=== PATIENT | male | born 1960 | race Caucasian/White ===

== ENCOUNTER 2016-12-13 10:52 | Emergency (ER) | payer MEDICARE ==
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
== END 2016-12-13 11:10 | disposition disaster alternative care site (69) ==
LOC: GMED 10:52
DX: F41.9 Anxiety disorder, unspecified (principal)

== ENCOUNTER 2016-12-13 15:57 | Emergency (ER) | payer MEDICARE | END 2016-12-13 16:10 | disposition disaster alternative care site (69) | LOC: GMED 15:57 | DX: Z53.21 Procedure and treatment not carried out due to patient leaving prior to being seen by health care provider (principal) ==

== ENCOUNTER 2017-01-10 06:31 | Emergency (ER) | payer MEDICARE ==
--- NOTE | ~2017-01-10 | ER ---
PATIENT'S NAME: MOUSTAPHA [facility] AGE: 56 Y [address] ROOM: [place] [address] LOCATION: [facility] ADMIT DATE: 01/10/2017 ER/Outpatient Report DISCHARGE DATE: 01/10/2017 FAMILY PHYSICIAN: James Quintanilla MD ATTENDING PHYSICIAN: Tammy Schilling Time of Arrival: 0635 hours. Time of Evaluation: 0645 hours. CHIEF COMPLAINT: Panic attacks. HISTORY OF PRESENT ILLNESS: The patient is a 56-year-old male who presents to the emergency department today with chief complaint of panic attacks. He reports this started 1 hour prior to arrival. He reports that nothing really sets it off. He has been worrying about bills and other life experiences. He did take 1 mg Ativan 1 hour prior to arrival. He does report he has had panic attacks for multiple years. This one has kind of been going on for the past 2-3 days as well, he reports. Denies any fevers or chills. No nausea or vomiting. No chest pain, no shortness of breath. He does report he has made an appointment to see Ash Santoyo next month. PAST MEDICAL HISTORY: Nathan's, bipolar, and anxiety. PAST SURGICAL HISTORY: Lithotripsy. SOCIAL HISTORY: Denies any smoking. Does report chewing tobacco use. Denies any alcohol or illicit drug use. ALLERGIES: NO KNOWN DRUG ALLERGIES. MEDICATIONS: Please see list. ROS: All systems are reviewed by myself and are negative with the exception of those discussed in HPI and past medical history. PHYSICAL EXAMINATION: VITAL SIGNS: Weight 100.2 kg, blood pressure 157/77, pulse 88, respiratory PATIENT'S NAME: MOUSTAPHA [facility] AGE: 56 Y [address] ROOM: [place] [address] LOCATION: [facility] ADMIT DATE: 01/10/2017 ER/Outpatient Report DISCHARGE DATE: 01/10/2017 FAMILY PHYSICIAN: James Quintanilla MD ATTENDING PHYSICIAN: Tammy Schilling rate 18, temperature 98.3, and oxygen saturation 100% on room air. GENERAL: The patient is a 56-year-old male, appears stated age, in no acute distress at this time. HEENT: Normocephalic, atraumatic. Pupils are equal, round, and reactive to light and accommodation. Extraocular motions are intact. Nares are patent bilaterally. TMs are clear. Oropharynx is clear. NECK: Supple. There is no nuchal rigidity. CARDIOVASCULAR: Regular rate and rhythm. No murmurs, rubs, or gallops. LUNGS: Clear to auscultation bilaterally. No wheezes, rales, or rhonchi. ABDOMEN: Soft, nontender, and nondistended. No rebound, rigidity, or guarding. MUSCULOSKELETAL: The patient moves all 4 extremities. NEUROLOGICAL: GCS 15. Alert and oriented x4. Cranial nerves 2 through 12 are grossly intact. SKIN: Warm and dry. There are no rashes or lesions noted. LABORATORY DATA AND X-RAYS: None. IMPRESSION: 1. Panic attacks. 2. Initial visit. EMERGENCY DEPARTMENT COURSE: The patient was brought back to the examination room. Seen and evaluated by myself. History and physical is performed as described above. The patient's symptoms are consistent with panic attacks. He denies any suicidal ideation. Denies any homicidal ideation. Denies any visual hallucinations or auditory hallucinations. The patient has been seen in the past for this. I have discussed I would like him to follow up with his primary care doctor in 2 days for re-evaluation. I have also stressed that I would like him to call for an appointment with Ash Santoyo to follow up as soon as possible. I have discussed return to care instructions including worsening symptoms or any other concerns to return to the emergency department as soon as possible. I have written a prescription for hydroxyzine for home. I have discussed sedation warning. He is not to drive. The patient is agreeable. He is without further questions at this time. DISPOSITION/FOLLOW-UP: The patient was discharged home in good condition. TAMMY SCHILLING DO PATIENT'S NAME: RICHARD GERARD [facility] AGE: 56 Y [address] ROOM: [place], [place] [address] LOCATION: [facility] ADMIT DATE: 01/10/2017 ER/Outpatient Report DISCHARGE DATE: 01/10/2017 FAMILY PHYSICIAN: James Quintanilla MD ATTENDING PHYSICIAN: Tammy Schilling/momol /[id number] d: 01/10/1756 t: 01/11/17903, OUTPATIENT REPORT
== END 2017-01-10 07:11 | disposition disaster alternative care site (69) ==
LOC: GMED 06:31
DX: F41.0 Panic disorder [episodic paroxysmal anxiety] (principal); F31.9 Bipolar disorder, unspecified; F17.220 Nicotine dependence, chewing tobacco, uncomplicated

== ENCOUNTER → 2017-01-22 | Outpatient (CLI) | payer MEDICARE | END | disposition disaster alternative care site (69) | LOC: GLAB 12-23 16:48 | DX: Z51.81 Encounter for therapeutic drug level monitoring (principal); Z79.899 Other long term (current) drug therapy ==